=== PATIENT | female | born 1955 | race Caucasian/White ===

== ENCOUNTER 2022-06-11 18:39 | Observation (INO) | payer MEDICARE, SELFPAY ==
[2022-06-11] VITALS (10 sets, daily range): BP systolic 130–160; BP diastolic 69–84; PULSE 60–88; RESP 16–18; TEMP 36.3–36.8; O2SAT 92–100; BMI 19.6
[2022-06-11] MEDS: Celecoxib 200 MG Capsule 400 MG PO (11:35)
[2022-06-11] MEDS: Gabapentin 600 MG Tablet PO (11:35)
[2022-06-11] MEDS: Acetaminophen 500 MG Tablet 1000 MG PO ×2 (11:35→21:47)
[2022-06-11] MEDS: Lactated Ringers 1,000 ML 999 ML IV (11:36)
[2022-06-11 12:16] LABS: Bedside Glucose 120 mg/dL (74-106)
[2022-06-11] MEDS: Cefazolin 2 GM in 0.9% Normal Saline 100 ML IV (14:10)
[2022-06-11] MEDS: TXA 1000mg in NS100 100ml (IVPB at Incision) 660 MG IV (14:23)
[2022-06-11] MEDS: TXA 1000mg in NS100 100ml (IVPB at Closure) 660 MG IV (16:00)
[2022-06-11] MEDS: Lactated Ringers 1,000 ML 125 ML IV (17:18)
--- NOTE | 2022-06-11 18:34 | PCM.OPRPT ---
Report of Operation Date of Procedure: 06/11/22 Description of Surgical Findings:: Preoperative diagnosis: Left knee primary osteoarthritis Postoperative diagnosis: Left knee primary osteoarthritis Procedure: Cemented, , Robotic assisted left total knee arthroplasty Surgeon: Joel Thomas DO Network Operations Technician: Sandra Ortiz PA-C Anesthesia: General endotracheal with preoperative adductor canal block Anesthesiologist: Dr. Batres Complications: None apparent Drains: None Estimated blood loss: 75 cc Urinary output: None recorded IV fluids: 1600 cc crystalloid Specimens: Total knee resections Surgical implants: [place] triathlon X3 asymmetric patella size a 32x11 mm thickness, triathlon cruciate retaining femoral #4, primary tibial baseplate #4, triathlon X3 tibial bearing insert CS 9 mm Indications: This is a 74-year-old male seen in the outpatient setting diagnosed with left knee osteoarthritis with significant varus deformity. He failed nonoperative management with intra-articular corticosteroid injections, activity modification, bracing, [id number]-rrymkll analgesics. X-rays revealed grade 4 medial compartment changes. She also had significant patellofemoral arthritis. I recommended a left total knee arthroplasty. The risks, benefits, alternatives to procedure reviewed with patient at length and he agreed to proceed. Risks included but were not limited to bleeding, infection, loss of life or limb, need for additional surgery, persistent pain, intraoperative or postoperative fracture, instability, loosening of components, wound complications, stiffness, neurovascular injury, DVT or PE. Patient expressed understanding these risks and wished to proceed with surgery. Informed consent was obtained in the outpatient setting. Description of procedure: Patient was identified in the preoperative holding area by name, medical record number, and date of . Informed consent was confirmed with the patient. The operative knee was marked with a surgical marker. All questions were answered to the patient's satisfaction. In the preoperative holding area, adductor canal block was administered by the anesthesia staff. At time of her procedure, patient brought to the operative suite and positioned supine a standard operating table. General anesthesia was induced and an endotracheal tube placed. We then placed a well-padded pneumatic tourniquet on the left upper thigh. The left upper extremity was brought across patient's chest throughout the procedure. We then prepped and draped the left lower extremity in a normal, sterile orthopedic fashion. We performed a timeout with all parties in attendance in agreement with the side, site, operation be performed. No concerns were voiced and would like to proceed with surgery. 2 g Ancef was administered prior to the incision by anesthesia staff as well as 1 g IV TXA. I first exsanguinated the left lower extremity with a Esmarch bandage. Tourniquet was inflated to 280 mmHg, where remained up for 76 minutes. Esmarch was removed. I planned a standard midline approach to the left knee approximately 15 cm in length. Skin was sharply incised with a 10 blade scalpel developing full-thickness layers down to the retinaculum. Layers were developed identifying the VMO. I then planned a standard medial parapatellar arthrotomy performed in flexion. The anterior horn of the medial meniscus was released. Hoffa's fat pad was then released. I then everted the patella in extension and brought the knee into 90 degrees of flexion. The anterior horn of the lateral meniscus was then released. Hoffa's fat pad was excised. The ACL was split in its mid substance with a 10 blade. We then brought the knee back into extension. I measured the outer diameter of the patella and selected an appropriately sized patellar reamer. I measured the thickness of the patella to be 24 mm. I then reamed the patella to a depth of approximately 14 mm. A protective baseplate was then placed on the patella. I then placed pins in the metaphyseal distal femur medial to lateral for the Tan arrays. In similar fashion, I made a 2 stab incisions approximately a handsbreadth distal to the tibial tubercle along the medial aspect of the tibia, drilling 2 bicortical pins for the tibial array. The knee was brought into flexion. The patella was subluxed laterally but not everted. Medial lateral retractors were placed. We then utilized the HiperScan software to confirm our planned surgical procedure and oriented with the patient's osseous anatomy. All checks with the HiperScan system were confirmed. Patient had a significant fixed varus deformity after performing stress examination utilizing the HiperScan software. We elected to place the tibial baseplate in approximately 3 degrees of varus to allow for appropriate balancing. Sawblade was then brought in. I first started with the tibial cut, ensuring protection of the MCL and patellar tendon. A tibial wafer was then excised. I then proceeded to make the posterior femoral, anterior, anterior chamfer cuts with the same blade. Ligaments were protected with Intermedics retractors. Sawblade was then exchanged to perform the distal femoral and posterior chamfer cuts. The robot was then removed from the surgical field. Remaining loose bone and meniscus was excised carefully. Posterior osteophytes were removed from the distal femur with a curved osteotome and rongeur. Trial components were then placed. Balance was excellent in both extension and 90 degrees flexion. No mid flexion instability was apparent. I then drilled for a size 32 patella. Patella was trialed. Tracking was excellent. We then marked for tibial baseplate. Distal femoral pegs were drilled. Tibial keel was punched. Trials were removed. Periarticular block was administered. The wound was copiously irrigated with normal saline solution. Simplex cement was then mixed on the back table. Components were then cemented in place with excess cement being removed. Cement was allowed to cure with the components in full extension utilizing a 9 mm trial polyethylene component. While the cement was curing, Betadine solution was irrigated into the wound and the wound edges. After cement had cured fully, trial polyethylene was removed. Tourniquet was deflated. Hemostasis was excellent. An additional 1 g TXA was administered IV. I selected a size 9 mm polyethylene which was placed and impacted per inpatient services director recommendations. Final components appeared very well balanced with excellent range of motion. There is no significant remaining flexion contracture, both clinically and measured by the robot. The wound was copiously irrigated with normal saline solution. Capsule was closed watertight with #1 strata fix barbed suture. Deeper bursal layer was reapproximated with 0 Vicryl suture. Dermis was reapproximated buried interrupted 2-0 Vicryl suture. Skin was finally reapproximated gibran. Patient tolerated the procedure well without apparent complication. She was safely awakened in the operative suite, transferred to his hospital bed and subsequently to PACU in stable condition. Need for skilled delinquent tax collection assistant: Sandra Ortiz PA-C was critical to the outcome of the case. During the course of the procedure the physician delinquent tax collection assistant played a vital role. Her intimate knowledge of my steps in the procedure aided in safe and expedient completion of the procedure. The PA played a vital role in positioning particularly in obtaining the appropriate positioning. The PA was also vital in the retraction of soft tissues during the exposure and projecting vital structures. The PA was also vital and protecting soft tissues during times of bony cuts. She also played a vital role in closure with my direct supervision. The PA was also important during reduction and dislocation of the joint and trials intraoperatively. Post Operative Plan: Patient will be placed in observation overnight. Weightbearing: Range of motion and weightbearing as tolerated left lower extremity. Antibiotics: Ancef 2 g every 8 hours x 3 doses DVT Prophylaxis: Aspirin 81 mg twice daily to start tomorrow morning, SCDchente, LEANNE reeves, early mobilization Dyer: None Dressing: Maintain silver dressing x5 days X-Rays: 2-week x-rays in the office. Follow-up: 2 weeks in my office for staple removal
[2022-06-11] MEDS: Senna/Docusate Sodium 1 Tablet 2 TABLET PO (21:48)
[2022-06-11] MEDS: Cefazolin 1 GM/50 ML BAG IV (21:52)
--- NOTE | 2022-06-12 | KNEE_PTH ---
PATIENT: JOSE LUIS KOWALSKI LOC: MS3 U#:[id number] AGE/SX: 66/F [facility] [facility] RE06/11/[address]: Dr. Joel Thomas DO : 1955 BED: 1 DIS: 06/12/2022 SPEC #: [id number] RECD: 06/12/22 12:37 STATUS: RADHA MARLENA #: [id number] MARK: 06/12/22 00:[address]: Joel Thomas DEPT: SURGICAL PATHOLOGY RECD BY: Clayton Baxter ENTERED: 06/12/22 12:37 SP TYPE: TOTAL KNEE OTHR DR: Dr. Genesis Hope DO Tissues: Knee, NOS Procedures: Decalcification bone/plaque Surgery Specimen Level IV HEADER OPERATION: ERAS, total knee replacement robotic arm assist PRE-OP DIAGNOSIS: Osteoarthritis left knee TISSUE SUBMITTED: Bone and soft tissue left knee MICROSCOPIC DIAGNOSIS Bone and tissue of left knee, total knee resection: Severe degenerative joint disease. Mild synovial hyperplasia. AM:chantel 06/17/2022 MICROSCOPIC DESCRIPTION Slides are reviewed. GROSS DESCRIPTION Received is one container designated bone and soft tissue left knee. The specimen consists of multiple fragments of alfred-yellow bone measuring in aggregate 14 x 12 x 2 cm. Also in the specimen container are multiple fragments of yellow-white soft tissue measuring in aggregate 5 x 2.5 x 1 cm. A number of bony fragments contain articular surfaces consistent with tibial plateau and femoral condyle and displaying prominent osteophyte formation, eburnation, and bone erosion. Optoelectronic Technician sections are submitted in two cassettes as follows: 1 - soft tissue, 2 - bone after decalcification. / AM:chantel 06/12/2022 TC:5 [facility]: [id number], [id number]
[2022-06-12 02:09] VITALS: BP 131/72; PULSE 63; RESP 16; TEMP 36.6; O2SAT 100
[2022-06-12] MEDS: Acetaminophen 500 MG Tablet 1000 MG PO (05:03)
[2022-06-12] MEDS: Cefazolin 1 GM/50 ML BAG IV (05:09)
[2022-06-12 05:18] LABS: Hematocrit 37.1 % (37-47); Hemoglobin 12.2 g/dL (12.0-15.0); Mean Corp Hgb Conc 32.9 g/dL (32-36); Mean Corpuscular Hgb 29.9 pg (27.0-32.0); Mean Corpuscular Volume 90.9 fL (81-99); Mean Platelet Vol. 10.1 fl (6.2-12.0); Platelet Count 197 K/mm3 (150-450); RBC Distribution Width CV 14.2 % (11.6-14.6); RBC Distribution Width SD 47.9 fl (35.1-43.9); Red Blood Count 4.08 M/mm3 (4.2-5.4); White Blood Count 8.4 K/mm3 (4.4-11.0)
[2022-06-12 05:50] LABS: Anion Gap 5 (5-15); BUN 12 mg/dL (7-18); BUN/Creat Ratio 12.8 RATIO (10-20); Calcium,Total 8.1 mg/dL (8.5-10.1); Chloride 105 mmol/L (98-107); Creatinine, Serum 0.94 mg/dL (0.55-1.02); EST Glomerular Filtration Rate 63 mL/min (>60); Est Glom Filt Rate - Afr Amer 76 mL/min (>60); Estimated Creatinine Clearance 51.54 ml/min; Glucose 99 mg/dL (74-106); Potassium 4.5 mmol/L (3.5-5.1); Sodium Level 137 mmol/L (136-145)
--- NOTE | 2022-06-12 07:49 | PCM.PN.ORT ---
Subjective Subjective Patient seen and examined. Denies any new complaints. Tolerating oral intake without nausea or vomiting. Denies fevers, chills, chest pain, shortness of breath, numbness or tingling. Objective Data Objective Data Vital Signs: Vital Signs Temp Pulse Resp BP Pulse Ox O2 Del Method O2 Flow Rate 98 F 63 16 131/72 H 100 Room Air 2 06/12/22 02:09 06/12/22 02:09 06/12/22 02:09 06/12/22 02:09 06/12/22 02:09 06/12/22 02:09 06/11/22 22:14 Oxygen Flow Rate (L/min) 2 Oxygen Delivery Method Room Air Weight: 125 lb 10.616 oz Body Mass Index (BMI) 19.6 Intake & Output: Intake and Output for Last 24 Hours 06/10/22 06/11/22 06/12/22 23:59 23:59 23:59 Intake Total 2589.5 / 2589.5 157.25 / 157.25 Output Total 300 / 300 500 / 500 Balance 2289.5 / 2289.5 -342.75 / -342.75 Lab / Micro Data Result Diagrams: 06/12/22 05:00 06/12/22 05:00 Labs: Laboratory Results - last 24 hr 06/11/22 11:30: POC Glucose 120 H 06/12/22 05:00: WBC 8.4, RBC 4.08 L, Hgb 12.2, Hct 37.1, MCV 90.9, MCH 29.9, MCHC 32.9, RDW Std Deviation 47.9 H, RDW Coeff of Ernestine 14.2, Plt Count 197, MPV 10.1 06/12/22 05:00: Sodium 137, Potassium 4.5, Chloride 105, Carbon Dioxide 27.0, Anion Gap 5, BUN 12, Creatinine 0.94, Estim Creat Clear Calc 51.54, Est GFR (MDRD) Af Amer 76, Est GFR (MDRD) Non-Af 63, BUN/Creatinine Ratio 12.8, Glucose 99, Calcium 8.1 L Physical Exam Narrative General - A&Ox3, NAD. VSS/AF Left lower extremity -incisional dressing C/D/I. SILT Sural, Saphenous, SPN, DPN, Tibial N. distributions. DP, PT 2+. BCR. DF, PF, EHL 5/5. No calf TTP. Assessment & Plan Assessment/Plan (1) Unilateral primary osteoarthritis, left knee: PLAN: POD#1 s/p left robotic assisted total knee arthroplasty - Pain control - PT/OT -weightbearing as tolerated left lower extremity - DVT PPX -aspirin 81 mg twice daily to start today, SCDs, LEANNE reeves, early mobilization -Patient doing well from orthopedic standpoint. If therapy goals are met today, plan for discharge to home. Prescriptions provided in the outpatient setting. All questions answered patient satisfaction. Outpatient physical therapy has been scheduled to start next week.
--- NOTE | 2022-06-12 07:51 | PCM.DC.SUM ---
Providers Date of Admission: 06/11/22 Primary Care Physician: Dr. Genesis Hope, DO Reason For Visit: LT TOTAL KNEE W ESSIE Diagnosis Discharge Diagnosis (1) Unilateral primary osteoarthritis, left knee: Status: Acute Code(s): M17.12 - Unilateral primary osteoarthritis, left knee Plan: POD#1 s/p left robotic assisted total knee arthroplasty - Pain control - PT/OT -weightbearing as tolerated left lower extremity - DVT PPX -aspirin 81 mg twice daily to start today, SCDs, LEANNE reeves, early mobilization -Patient doing well from orthopedic standpoint. If therapy goals are met today, plan for discharge to home. Prescriptions provided in the outpatient setting. All questions answered patient satisfaction. Outpatient physical therapy has been scheduled to start next week. Medications at Discharge Home Medications cholecalciferol (vitamin D3) 50 mcg (2,000 unit) capsule (Vitamin D3) 50 mcg PO DAILY 05/29/22 denosumab 60 mg/mL subcutaneous syringe (Prolia) 60 mg subcut .Q6MO 05/29/22 phenobarbital 64.8 mg tablet 64.8 mg PO 00 06/12/22 phenytoin sodium extended 300 mg PO 00 06/12/22 Hospital Course Summary of Care Provided Minutes Spent on Discharge: 15 Hospital Course: Patient underwent uncomplicated left total knee arthroplasty robot-assisted June with myself. She was placed in observation postoperatively for convalescence and monitoring. She did well in the postoperative period and was able be safely discharged home on postoperative day #1. She worked well with physical and occupational therapies during her stay. No medical or surgical complications were encountered throughout her stay. Physical Exam Narrative General - A&Ox3, NAD. VSS/AF Left lower extremity -incisional dressing C/D/I. SILT Sural, Saphenous, SPN, DPN, Tibial N. distributions. DP, PT 2+. BCR. DF, PF, EHL 5/5. No calf TTP. Weight / BMI Weight Weight: 125 lb 10.616 oz Body Mass Index (BMI) 19.6 ABG / Lab / Microbiology Data Result Diagrams: 06/12/22 05:00 06/12/22 05:00 Laboratory: Laboratory Results - last 24 hr 06/11/22 11:30: POC Glucose 120 H 06/12/22 05:00: WBC 8.4, RBC 4.08 L, Hgb 12.2, Hct 37.1, MCV 90.9, MCH 29.9, MCHC 32.9, RDW Std Deviation 47.9 H, RDW Coeff of Ernestine 14.2, Plt Count 197, MPV 10.1 06/12/22 05:00: Sodium 137, Potassium 4.5, Chloride 105, Carbon Dioxide 27.0, Anion Gap 5, BUN 12, Creatinine 0.94, Estim Creat Clear Calc 51.54, Est GFR (MDRD) Af Amer 76, Est GFR (MDRD) Non-Af 63, BUN/Creatinine Ratio 12.8, Glucose 99, Calcium 8.1 L Meaningful Use Info Meaningful Use Diagnoses (Choose all that apply): None applicable Discharge Plan Admission Admit Date/Time: 06/11/22 18:39 Attending Provider: Joel Thomas Primary Care Provider: Genesis Hope Instructions Additional Instructions / Restrictions: Follow preprinted instructions from your surgeons office. Discharge Orders/Prescriptions Prescriptions: Continued cholecalciferol (vitamin D3) [Vitamin D3] 50 mcg (2,000 unit) Capsule 50 mcg PO DAILY Prolia 60 mg/mL Syringe 60 mg SUBCUT .Q6MO phenobarbital 64.8 mg tablet 64.8 mg PO 0700 phenytoin sodium extended 300 mg capsule 300 mg 300 mg PO 0700 Referrals / Follow Up: Genesis Hope DO [Primary Care Provider] - Joel Thomas DO [Med Staff - Active Staff] - Within 2 Weeks Disposition Disposition (needs filled in before D/C Order can be placed): Home, Self Care
[2022-06-12 07:54] VITALS: BP 117/67; PULSE 57; RESP 16; TEMP 36.4; O2SAT 99
[2022-06-12] MEDS: Famotidine 20 MG Tablet PO (07:56)
[2022-06-12] MEDS: Aspirin 81 MG TAB.CHEW PO (07:56)
[2022-06-12] MEDS: Senna/Docusate Sodium 1 Tablet 2 TABLET PO (07:56)
--- NOTE | 2022-06-12 10:10 | CASEMGMT ---
MAYELIN HOWARD Face to Face with patient for initial transition planning/care coordination assessment. RN LEE introduced self and role at [facility]. Patient sitting in chair, alert and oriented. Patient willing to participate in assessment and is able to answer all questions appropriately. Care providers, pharmacy, and demographics verified. Patient wishes to discharge home and is setup with outpatient therapy at [facility]. Patient states she has no further needs or concerns at this time. CM to follow for discharge planning needs that may arise. PCP: Herminia Specialists: pooja Thomas Pharmacy: [facility] Insurance: [facility] Prescription Benefit: yes Living Will/HPOA: yes, Stephanie Baptiste, HPOA LNOK: Living Arrangements: Patient lives with in a tri-level home with 6 steps and railing between levels. Patient states she was independent and able to ambulate stairs prior to surgery. Transportation: DME/HHC: Patient states she has shower chair, cane, walker, and grab bars at home. Patient is scheduled for outpatient therapy starting WednesdayJune 15. No previous HHC or SNF Disposition Plan: Patient to discharge home with outpatient therapy, family support, and follow-up plans in place. Kate STEELE, RN, CM
[2022-06-12 12:35] VITALS: BP 117/67; PULSE 57; RESP 16; TEMP 36.9; O2SAT 100
== END 2022-06-12 13:03 | disposition home or self-care (01) ==
LOC: SDC 18:44 → MS3 18:44
PROVIDERS: Admitting Provider Student in an Organized Health Care Education/Training Program; Referring Provider Student in an Organized Health Care Education/Training Program; Visit Provider Student in an Organized Health Care Education/Training Program
PROC: 0SRD0JZ Replacement of Left Knee Joint with Synthetic Substitute, Open Approach (ICD-10-PCS; CPT 27447; principal; 2022-06-11 12:30)
DX: M17.12 Unilateral primary osteoarthritis, left knee (principal); G40.909 Epilepsy, unspecified, not intractable, without status epilepticus; M21.162 Varus deformity, not elsewhere classified, left knee; Z79.899 Other long term (current) drug therapy; R03.0 Elevated blood-pressure reading, without diagnosis of hypertension
CPT/HCPCS: 27447; S2900; 01402; 64447; 36415; 80048; 82962; 85027; 88305; 88311; 96361; 96365; 96366; 97110; 97162; 97165; 97530; 99218; 99251; C1776; J7120; G0378; G0463; J2405; J3475